=== PATIENT | male | born 1995 | race Caucasian/White ===

== ENCOUNTER 2018-06-09 23:36 | Emergency (ER) | payer MEDICAID ==
[2018-06-09] MEDS ORDERED: LORazepam 2 MG/ML INJ IVP ONE (23:54)
[2018-06-09] MEDS ORDERED: LORazepam 2 MG/ML INJ ONE (23:54)
--- NOTE | 2018-06-09 23:55 | EDPHY ---
H & P Smoking Status: Current every day smoker Time Seen by Provider: 06/09/18 23:54 HPI/ROS: CHIEF COMPLAINT: Suicidal ideation HISTORY OF PRESENT ILLNESS: Patient is a 22-year-old male who was being transported to the [facility] when he threatened suicidal ideation. He was transported here for further evaluation. Time of eye evaluation been sedated using IV Ativan was unable to provide his own history. According to police officers he states that he had a plan to"jump off a mountain and kill himself" he states that he has a history of multiple suicide attempts. He also admits to use of heroin and methamphetamines. REVIEW OF SYSTEMS: Constitutional: No fever, no chills. Eyes: No discharge. ENT: No sore throat. Cardiovascular: No chest pain, no palpitations. Respiratory: No cough, no shortness of breath. Gastrointestinal: No abdominal pain, no vomiting. Genitourinary: No hematuria. Musculoskeletal: No back pain. Skin: No rashes. Neurological: No headache. (Nathan Gonzalez) Physical Exam: General Appearance: Alert and no distress. Eyes: Pupils equal and round no injection. Respiratory: Chest is nontender, lungs are clear to auscultation. Cardiac: regular rate and rhythm. Gastrointestinal: Abdomen is soft and nontender, no masses, bowel sounds normal. Musculoskeletal: Neck is supple and nontender. Extremities have full range of motion and are nontender. Skin: No rashes or lesions. (Nathan Gonzalez) Constitutional: Initial Vital Signs Temperature (C) 36.7 C 06/09/18 23:48 Heart Rate 100 06/09/18 23:48 Respiratory Rate 22 H 06/09/18 23:48 Blood Pressure 159/103 H 06/09/18 23:48 O2 Sat (%) 96 06/09/18 23:48 O2 Delivery Mode Room Air Allergies/Adverse Reactions: No Known Allergies Allergy (Unverified 06/09/18 23:51) Home Medications: Medication Instructions Recorded NK [No Known Home Meds] 06/09/18 Medical Decision Making ED Course/Re-evaluation: The patient was stated by Ativan and was unable to obtain further history by the patient for the end of my shift. He is medically cleared and awaiting psychiatric evaluation likely in the morning after becomes more sober. Patient was signed out to Dr Guerra at the end of my shift. (Nathan Gonzalez) ED PA DICTATION I evaluated and participated in the management of the patient. I also evaluated the patient independently. My co-signature indicates that I have reviewed this chart and I agree with the findings and plan of care as documented. My personal H&P findings include: 22-year-old man presents from our claiming suicidal ideation. Here he is quite agitated jumping about the gurney, speaking nonsensically. I suspect intoxication with possibly amphetamine or cocaine. I ordered Ativan for the patient and he slept for the majority of my shift. We have been unable to obtain a urine sample. The case will be signed out to Dr. Giraldo pending UA and mental health evaluation. (Zara Guerra) I assumed care of this patient Dr. Guerra at 7:00 a.m.. He underwent mental health evaluation. I spoke with the mental health worker who agrees that he is not a danger to himself or others. The patient himself will be given referral to [facility] but states that he is not interested in follow-up at this point in time. Mental health hold has been lifted at 1:45 p.m.. He will be discharged from the department. (Yamilet Giraldo) Differential Diagnosis: Polysubstance abuse, electrolyte disturbance, brain mass, skull fracture, delirium tremens (Nathan Gonzalez) - Data Points Laboratory Results: Laboratory Results 06/10/18 00:05 06/10/18 00:05 Medications Given: Discontinued Medications Lorazepam (Ativan Injection) 1 mg IVP EDNOW ONE Stop: 06/09/18 23:55 Last Admin: 06/10/18 00:17 Dose: 2 mg Departure - Departure Disposition: Home, Routine, Self-Care Clinical Impression: Acute psychosis, Polysubstance abuse Condition: Fair Instructions: [facility], Polysubstance Abuse (ED) Referrals: [facility],. [Clinic] - As per Instructions
[2018-06-10 00:17] LABS: PLATELET COUNT 176 10^3/uL (150-400)
[2018-06-10 14:00] VITALS: BP 142/95
--- NOTE | 2018-06-10 16:22 | ASMTTCLDSP ---
TLC Discharge Disposition Disposition: Answers: Discharge If Answers: Yes DISCHARGED: Patient/family given suicide hotline info & SAMHSA brochure? Disposition Notes: Notes: Pt is homeless. He took a shower, requested wound care from the nurse and received warm clothes prior to his discharge. He did not respond to inquiries into his need for medical/mental health treatment and was aware of the housing options. Discharge Concerns/Recommendations: Notes: In consultation with [facility] ED physician, Dr fernando MDit was concurred that Pt does not appear to meet 27-65 criteria requiring psychiatric hospitalization as Pt does not appear to be an imminent risk of harm to self/others/due to grave disability due to a mental illness condition. Dr. Giraldo vacated M1 hold at 2:51PM Was patient given the Answers: Not applicable Inpatient Behavioral Health Prohibited Belongings List while in the ED? Date and time M1 hold 06/10/2018 02:51 PM vacated (time format is hh:mm): Type of Hold: Answers: M1/72-hour Hold Hold initiated by: Answers: Police Date Signed: 06/10/2018 04:22 PM Electronically Signed By:Hortencia Rao
--- NOTE | 2018-06-10 16:23 | ASMTTLCEVL ---
TLC Evaluation - Basic Information Evaluation Start Date and 06/10/2018 01:00 PM Time Hospital Status Answers: M1 Hold 72-hr M1 Hold Start Date 06/09/2018 11:30 PM and Time Patient statement Notes: "Im here to randy with you". Narrative Notes: Pt is a 22 y/o, homeless, severely detoxing, male brought to the ED by police on an M1 for being a danger to himself. Police were taking pt to the [facility] to detox. On the way there, per M1, "Charli was severely detoxing from meth/heroin use. He told me, undersigned, that he had a plan to commit suicide by jumping off the mountains. He stated he has attempted suicide multiple times "too many to count" and was going to try again because he was in pain from detoxing". Pt was agitated and given an Ativan injection, 1mg. Per nursing notes, Pt had a difficult night, declined giving urine, "thrashing about the bed and mumbling", rolling onto the floor when assisting to bathroom, humping the mattress and stroking the sheets. In the morning he was able to eat and did allow for urine test. He accidentally knocked the tray off the stand. Increasingly agitated by noon. Pt wanting to leave AMA, stating all of his possessions have been stolen and throwing his body into the lee and door. Pt able to calm down with redirection. Pt sat on the floor during his assessment. He wore just pants, skin, hair and nails filfthy and smelling poorly. He looked many years older than his age of 22 years. he had multiple wounds in many states of healing on his elbows and knees. Throughout the interview his limbs jerked and appeared not completely in his control. Although he was able to respond to many questions directly and coherently, sometimes he would mumble and sometimes appear to shrug off the answer. Due to this detailed information was sometimes difficult to get. His affect was unstable with his voice sometimes rising, and crying when he told of losing his wallet, IDs, sleeping bag and his mother's ashes however, he remained appropriate. He stated that he had been diagnosed with mental illness', but was not able to convey what they were or any of the medications that had been prescribed him. He wasn't able to respond to questions about bry involvement with [facility] or [facility]. Pt said he tried the longterm's coordinated entry program but, "there was a month and a half waiting list. When [facility] was mentioned he responded, "they don't like me". He does receive approximately $675 a month for SSI. He denied any suicidality stating that he had a hx of that, but that was years ago; it's in the past". He denied any intention to hurt someone else. He denied any hallucinations, did not appear internally preoccupied and his speech did not contain delusional content. Towards the end of the assesment Pt complained that he had missed the winter clothing being given away today. Clinician offered to bring him clothes and asked if he would like to shower. He agreed to both and asked if a nurse could tend to the multiple wounds on his body. Pt stated that he would like to go to [place] where he has 2 outstanding warrants for failure to appear and failure to pay, "That way I could spend the winter in residential". Diagnosis History Notes: Unknown Prior suicide attempts Notes: Per pt there were attempts, but at least several years ago. Prior hospitalizations Notes: Pt did not respond. Treatment Responses Notes: Unknown History of violence Notes: Pt denies. Therapist: None Psychiatrist: None Medications (name, dosage, route, freq uency) Notes: None Allergies/Reaction Notes: None known Sleep Notes: Pt is homeless. Appetite Notes: Normal. Pt appears thin, probablly due to lack of access to food. Medical/Surgical history Notes: None known. Substance use history (frequency, intensity, his tory, duration) Notes: Alcohol - approx 3 days a week Marijuana - Daily, all day Cocaine- rarely, last used yesterday Meth - First time yesterday Heroin - use unknown Family composition Notes: Pt's mother has . His father lives in [place], but there is no contact. pt has no contact with his 2 siblings. Need for family Answers: No participation in patient's care Family psychiatric/substance abuse history Notes: Pt responded that they all "have something". Developmental history Notes: Unknown trauma hx unknown Marital status/children Notes: Denies Living situation Notes: Homeless Sexual history/orientation Notes: Unknown Peer support/family strengths Notes: Denies Education level/history Notes: Unknown Work history Notes: Unknown Notes: Denies Legal Notes: 2 outstanding warrants for failure to appear and failure to pay in [place]. Pt says police regularly "harass" him. Gnosticist/Spiritual Notes: Unknown Leisure Notes: Unknown. Patient's strengths Answers: Intelligent (Please select at least TWO strengths): Willingness [facility] Evaluation - Mental Status Exam Appearance: Answers: Unclean Unkempt Disheveled Eye Contact: Answers: Intermittent Mood: Answers: Labile Affect: Answers: Agitated Flat Behavior: Answers: Appropriate Inappropriate Cooperative Uncooperative Crying Restless Speech: Answers: Relevant Logical Unclear Coherent Incoherent Mumbling Thought Process: Answers: Organized Disorganized Oriented Alert Insight: Answers: Poor Judgement: Answers: Poor Hallucinations: Answers: None Current Stage of Change Answers: Precontemplation Pt reported to have Answers: No suicidal/self-injuring ideation/behavior? Pt reported to be making Answers: No suicidal/self-injuring threats? Pt reported to have Answers: No aggression/assault ideation/behavior? Pt reported to be making Answers: No aggression/assault threats? Pt exhibits inability to Answers: No care for self/grave disability? Ideation/behavior is Answers: No chronic? Patient has a specific Answers: No plan? Pt has access to means to Answers: No execute the plan? Ideation involves Answers: No serious/lethal intent? Ideation has Answers: No delusional/hallucinatory content? History of Answers: No suicidal/self-injuring ideation, behavior, or threats? History of Answers: No aggressive/assaultive ideation, behavior, or threats? History of serious Answers: No physical harm to self/others while in treatment setting? [facility] Evaluation - Suicide/Homicide Risk Suicide Risk Factors: Answers: Agitation Alcohol/Heavy Drug Use Financial Difficulties Flat Affect Inadequate Social Support Lack of Social Support Lack/Loss of Employment Prior Suicide Attempt(s) Single Unstable Living Situation Homicide/violence risk Answers: Heavy Drug Use factors: Current Suicidal Answers: No Ideation? Current Suicidal Ideation Answers: Yes in the Past 48 Hours? Current Suicidal Ideation Answers: Yes in the Past Month? Current Suicidal Answers: No Ideation, Worst Ever? Suicide Internal Answers: Other Notes: Wants to live. Protective Factors: Suicide External Answers: None Protective Factors: Ranking of patient's Answers: Low suicidal risk: Ranking of patient's Answers: Low homicidal risk: [facility] Evaluation - Wrap-up BDI Total Score: Not completed BSS Total Score: Not completed AXIS I Diagnosis (include DSM-V and ICD-10 codes), must also be entered in [employer], which is the source of truth. 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 Dr. Giraldo vacated M1 hold at 2:51PM Evaluation End Date and 06/10/2018 04:10 PM Time (HH:SIRI): Date Signed: 06/10/2018 04:23 PM Electronically Signed By:Hortencia Rao
== END 2018-06-10 14:00 | disposition home or self-care (01) ==
PROC: GZ11ZZZ Psychological Tests, Personality and Behavioral (ICD-10-PCS; principal; 2018-06-09)
DX: F23 Brief psychotic disorder (principal); F19.10 Other psychoactive substance abuse, uncomplicated
CPT/HCPCS: 80305; 96374; G0480; J2060